=== PATIENT | female | born 1980 | race Hispanic/Latino ===

== ENCOUNTER 2024-06-03 13:04 | Emergency (ER) | payer BC ==
[~2024-06-03] VITALS: Ht 149.9 cm; Wt 98.0 kg
[2024-06-03 13:06] VITALS: TEMP 98.5
[2024-06-03 13:46] LABS: BASOPHILS % 0.4 % (0.0-1.0); EOSINOPHILS # (AUTO) 0.1 (0.0-0.4); EOSINOPHILS % 1.8 % (0.0-6.0); HEMATOCRIT 39.5 % (34.2-44.1); HEMOGLOBIN 13.3 g/dL (12.0-16.0); LYMPHOCYTES # (AUTO) 2.3 (1.0-3.2); LYMPHOCYTES % 30.9 % (18.0-39.1); MEAN CORPUSCULAR HEMOGLOBIN 28.9 pg (28-32); MEAN CORPUSCULAR HGB CONC 33.7 g/dL (31-35); MEAN CORPUSCULAR VOLUME 85.9 fL (81-99); MONOCYTES # (AUTO) 0.4 (0.2-0.8); MONOCYTES % 5.3 % (4.4-11.3); NEUTROPHILS # (AUTO) 4.7 (2.1-6.9); NEUTROPHILS % 61.3 % (38.7-80.0); PLATELET COUNT 388 x10e3/uL (140-360); RED CELL DISTRIBUTION WIDTH 14.2 % (11.7-14.4); WHITE BLOOD COUNT 7.58 x10e3/uL (4.8-10.8)
[2024-06-03 14:16] LABS: ALBUMIN/GLOBULIN RATIO 0.9 (0.8-2.0); ANION GAP 13.8 mmol/L (8-16); BILIRUBIN,TOTAL 0.4 mg/dL (0.2-1.2); CALCIUM 9.2 mg/dL (8.4-10.2); CREATININE, SERUM 0.85 mg/dL (0.57-1.11); POTASSIUM 3.8 mmol/L (3.5-5.1); TOTAL PROTEIN 8.3 g/dL (6.5-8.1)
[2024-06-03 14:22] LABS: TROPONIN I 0.005 ng/mL (0-0.300)
[2024-06-03 16:21] VITALS: PULSE 84; RESP 17
[2024-06-03] MEDS: HYDRALAZINE HCL 20 MG/ML VIAL IV STA (16:44)
[2024-06-03 18:56] VITALS: BP 129/84; PULSE 73; RESP 18; TEMP 98.3; O2SAT 98
== END 2024-06-03 17:30 | disposition home or self-care (01) ==
LOC: ER 13:26
DX: R06.02 Shortness of breath (principal); R07.89 Other chest pain; K21.9 Gastro-esophageal reflux disease without esophagitis; R94.31 Abnormal electrocardiogram [ECG] [EKG]
CPT/HCPCS: 36415; 71045; 80053; 82550; 84484; 85025; 85379; 93005; 99284